=== PATIENT | female | born 1980 | race Caucasian/White ===

== ENCOUNTER 2023-12-14 18:44 | Emergency (ER) | payer MEDICAID ==
[~2023-12-14] VITALS: Ht 165.1 cm; Wt 93.0 kg
[2023-12-14 19:51] VITALS: BP 154/89; TEMP 98.2; O2SAT 98
[2023-12-14] MEDS ORDERED: CLIN300C12 PO (20:41)
[2023-12-14] MEDS ORDERED: ACETAMINOPHEN ES 500 MG TABLET ONE (20:45)
[2023-12-14] MEDS ORDERED: IBUPROFEN 400 MG TABLET ONE (20:45)
[2023-12-14] MEDS: ACETAMINOPHEN ES 500 MG TABLET PO ONE (20:48)
[2023-12-14] MEDS: IBUPROFEN 400 MG TABLET PO ONE (20:48)
== END 2023-12-14 21:53 | disposition home or self-care (01) ==
LOC: ER 18:44
DX: L03.114 Cellulitis of left upper limb (principal); Z79.899 Other long term (current) drug therapy
CPT/HCPCS: 71045-TC